=== PATIENT | male | born 1990 | race Caucasian/White ===

== ENCOUNTER 2016-07-30 09:57 | Emergency (ER) | payer MEDICAID ==
[2016-07-30 10:15] VITALS: O2SAT 96
[2016-07-30] MEDS ORDERED: OXYCODONE/APAP 5/325 TAB PO ONE (10:51)
[2016-07-30] MEDS ORDERED: diphenhydrAMINE 25 MG CAP PO ONE (10:51)
[2016-07-30] MEDS ORDERED: AZITHROMYCIN 250 MG TAB PO ONE (10:51)
[2016-07-30] MEDS ORDERED: METOCLOPRAMIDE 10 MG TAB PO ONE (10:51)
--- NOTE | 2016-07-30 11:30 | EDPHY ---
General Narrative: CHIEF COMPLAINT: Sore throat, headache, fever HISTORY OF PRESENT ILLNESS: patient complains of 2 days of sore throat, headache, fever, cough. Symptoms started soon after children and this helps with diagnosed with strep pharyngitis. Headache is consistent with previous migraines. No neck pain or stiffness. No chest pain. Mild, nonproductive cough. No abdominal or urinary complaints. Moderate to severe complaints that are no better with [id number] medications. No particular modifying factors otherwise. No other associated complaints or modifying factors. REVIEW OF SYSTEMS: Ten systems reviewed and are negative unless otherwise noted in the HPI PERTINENT MEDICAL HISTORY: EXAMINATION General Appearance: Alert, no distress Head: normocephalic, atraumatic Eyes: Pupils equal and round, no conjunctival pallor or injection ENT, Mouth: Mucous membranes moist . Uvula midline. There is posterior erythema but no edema. No abscess. Airway widely patent. Neck: Normal inspection, supple, non-tender . No nuchal rigidity or meningismus. Respiratory: Lungs are clear to auscultation . No wheezing, rhonchi or crackles Cardiovascular: Regular rate and rhythm. No murmur. Gastrointestinal: Abdomen is soft and nontender.No CVA tenderness. Neurological: A&O, nonfocal, normal gait Skin: Warm and dry, no rash Extremities: Nontender, no pedal edema Psychiatric: Mood and affect normal DIFFERENTIAL DIAGNOSES: Including but not limited to Viral illness, strep pharyngitis, acute pharyngitis, migraine headache, influenza MDM: 11:20 a.m. sore throat, fever, body aches, chills, headache. No neck pain or stiffness. He does have some cough. His examination is consistent with more viral illness , but does confirm strep pharyngitis in the home. I will treat him presumptively for strep pharyngitis and for his headache. Follow up with primary care physician. Return to ER precautions discussed. Discharged home stable condition SUPERVISION: This patient was independently evaluated without direct examination by the attending physician. Case was discussed with attending physician. - History Smoking Status: Current some day smoker - Objective Vital Signs: Initial Vital Signs Temperature (C) 100.8 F 07/30/16 10:13 Heart Rate 81 07/30/16 10:13 Respiratory Rate 17 07/30/16 10:13 O2 Sat (%) 96 07/30/16 10:13 O2 Delivery Mode Room Air Allergies/Adverse Reactions: Penicillins Allergy (Verified 07/30/16 10:13) Home Medications: Medication Instructions Recorded Azithromycin [Zithromax] 250 mg PO DAILY #4 tab 07/30/16 Codeine/Butalbit/Acetamin/Caff 1 each PO Q6 PRN #12 capsule 07/30/16 [Fioricet-Cod 47-03-450-40 Cap] Ondansetron Odt [Zofran Odt 4 mg 4 mg PO Q6 PRN #12 tab 07/30/16 (*)] Laboratory Results: 07/30/16 07/30/16 07/30/16 Unknown 10:50 10:50 Influenza Typ A,B (DFA) NEGATIVE FOR FLU (NEGATIVE) Group A Strep Screen NEGATIVE (NEGATIVE) Group A Strep DNA Pending Medications Given: Discontinued Medications Azithromycin (Zithromax) 500 mg PO EDNOW ONE PRN Reason: Protocol Stop: 07/30/16 10:52 Last Admin: 07/30/16 11:00 Dose: 500 mg Diphenhydramine HCl (Benadryl) 25 mg PO EDNOW ONE Stop: 07/30/16 10:52 Last Admin: 07/30/16 11:49 Dose: Not Given Metoclopramide HCl (Reglan) 10 mg PO EDNOW ONE Stop: 07/30/16 10:52 Last Admin: 07/30/16 11:49 Dose: Not Given Oxycodone/Acetaminophen (Percocet 5/325) 1 tab PO EDNOW ONE Stop: 07/30/16 10:52 Last Admin: 07/30/16 11:01 Dose: 1 tab Departure - Departure Disposition: Home, Routine, Self-Care Clinical Impression: Myalgia Acute pharyngitis Qualifiers: Pharyngitis/tonsillitis etiology: unspecified etiology Qualified Code(s): J02.9 - Acute pharyngitis, unspecified Cephalgia Qualifiers: Headache type: unspecified Headache chronicity pattern: acute headache Intractability: not intractable Qualified Code(s): R51 - Headache Condition: Good Instructions: Pharyngitis (ED), Migraine Headache (ED), Influenza (ED) Additional Instructions: medications as discussed. Return to the ER for worsening pain, any neck pain or stiffness, persistent fever vomiting Referrals: NONE *PRIMARY CARE P,. [Primary Care Provider] - As per Instructions [facility]Clinic[facility] - As per Instructions Nadia Rivera MD [Medical Doctor] - As per Instructions Stand Alone Forms: Work Excuse Prescriptions: Azithromycin [Zithromax] 250 mg PO DAILY #4 tab Codeine/Butalbit/Acetamin/Caff [Fioricet-Cod 87-71-739-40 Cap] 1 each PO Q6 PRN #12 capsule PRN Reason: Headache Ondansetron Odt [Zofran Odt 4 mg (*)] 4 mg PO Q6 PRN #12 tab PRN Reason: Nausea/Vomiting, Use 1st
[2016-07-30 12:03] VITALS: BP 109/76; PULSE 94; RESP 16; TEMP 98.4
== END 2016-07-30 12:03 | disposition home or self-care (01) ==
DX: J02.9 Acute pharyngitis, unspecified (principal); R51 Headache; M79.1 Myalgia; F17.200 Nicotine dependence, unspecified, uncomplicated

== ENCOUNTER 2016-09-02 07:06 | Emergency (ER) | payer MEDICAID ==
[2016-09-02] MEDS ORDERED: ONDANSETRON 4 MG/2 ML VIAL IVP ONE (07:13)
[2016-09-02] MEDS ORDERED: NS 1,000 ML IV ONE ×2 (07:13→08:12)
[2016-09-02] MEDS ORDERED: KETOROLAC 30 MG/1 ML SDV IVP ONE (07:44)
--- NOTE | 2016-09-02 07:47 | EDPHY ---
H & P Time Seen by Provider: 09/02/16 07:37 HPI/ROS: CHIEF COMPLAINT: Vomiting and diarrhea HISTORY OF PRESENT ILLNESS: 25-year-old male presents with vomiting and diarrhea. Onset of nausea and vomiting yesterday morning. Multiple episodes of vomiting, followed by multiple episodes of watery diarrhea. He now has a moderate headache. He also developed a rash 2 days ago on his scalp and extremities. The rash is resolving. No fever or chills. No known ill contacts. REVIEW OF SYSTEMS: Constitutional: No fever, no chills Eyes: No visual changes ENT: No sore throat Respiratory: No cough, no shortness of breath Cardiac: No chest pain Genitourinary: No hematuria, no dysuria Musculoskeletal: No leg pain or swelling Skin: No rash Neurological: no numbness, no weakness] Psychiatric: No depression Past Medical/Surgical History: Denies Social History: Occasional alcohol use Smoking Status: Never smoked Physical Exam: General Appearance: Alert, pleasant Eyes: Pupils equal and round, no conjunctival pallor or injection ENT, Mouth: Mucous membranes moist Neck: Normal inspection Respiratory: Lungs are clear to auscultation Cardiovascular: Regular rate and rhythm Gastrointestinal: Abdomen is soft, mild epigastric tenderness Neurological: A&O, nonfocal, normal gait Skin: Warm and dry, scattered papular rash on extremities and scalp Extremities: Nontender, no pedal edema Psychiatric: Mood and affect normal Constitutional: Initial Vital Signs Temperature (C) 36.5 C 09/02/16 07:09 Heart Rate 82 09/02/16 07:09 Respiratory Rate 20 09/02/16 07:09 Blood Pressure 126/73 H 09/02/16 07:09 O2 Sat (%) 94 09/02/16 07:09 O2 Delivery Mode Room Air Allergies/Adverse Reactions: Penicillins Allergy (Verified 09/02/16 07:09) Home Medications: Medication Instructions Recorded Ondansetron Odt [Zofran Odt 4 mg 4 mg PO Q6 PRN #12 tab 07/30/16 (*)] Ondansetron Odt [Zofran Odt 4 mg 4 mg PO Q4 PRN #6 tab 09/02/16 (*)] Medical Decision Making ED Course/Re-evaluation: This patient presents with vomiting, diarrhea, headache and rash, consistent with viral syndrome. I do not suspect meningitis or other serious etiology for his symptoms. IV normal saline 1L, Toradol and Zofran IV given. 0815-Continues to feel nauseated. Reglan 10 mg IV and Benadryl 25 mg IV given. 9:30 a.m.-feels better and wants to go home. Abdominal exam is benign. Differential Diagnosis: Differential diagnosis includes though not limited to severe dehydration, appendicitis, DKA, meningitis, sinusitis, pneumonia. - Data Points Laboratory Results: Laboratory Results 09/02/16 07:21 09/02/16 07:21 09/02/16 09/02/16 07:21 07:21 WBC 12.51 10^3/uL H 10^3/uL (3.80-9.50) RBC 5.21 10^6/uL 10^6/uL (4.40-6.38) Hgb 15.9 g/dL g/dL (13.7-17.5) Hct 46.7 % % (40.0-51.0) MCV 89.6 fL fL (81.5-99.8) MCH 30.5 pg pg (27.9-34.1) MCHC 34.0 g/dL g/dL (32.4-36.7) RDW 12.7 % % (11.5-15.2) Plt Count 206 10^3/uL 10^3/uL (150-400) MPV 10.6 fL fL (8.7-11.7) Neut % (Auto) 71.6 % % (39.3-74.2) Lymph % (Auto) 16.1 % % (15.0-45.0) Grundy % (Auto) 8.3 % % (4.5-13.0) Eos % (Auto) 3.1 % % (0.6-7.6) Baso % (Auto) 0.4 % % (0.3-1.7) Nucleat RBC Rel Count 0.0 % % (0.0-0.2) Absolute Neuts (auto) 8.95 10^3/uL H 10^3/uL (1.70-6.50) Absolute Lymphs (auto) 2.02 10^3/uL 10^3/uL (1.00-3.00) Absolute Monos (auto) 1.04 10^3/uL H 10^3/uL (0.30-0.80) Absolute Eos (auto) 0.39 10^3/uL 10^3/uL (0.03-0.40) Absolute Basos (auto) 0.05 10^3/uL 10^3/uL (0.02-0.10) Absolute Nucleated RBC 0.00 10^3/uL 10^3/uL (0-0.01) Immature Gran % 0.5 % % (0.0-1.1) Immature Gran # 0.06 10^3/uL 10^3/uL (0.00-0.10) Sodium 142 mEq/L mEq/L (134-144) Potassium 4.5 mEq/L mEq/L (3.5-5.2) Chloride 104 mEq/L mEq/L (97-110) Carbon Dioxide 25 mEq/l mEq/l (22-31) Anion Gap 13 mEq/L mEq/L (8-16) BUN 22 mg/dL mg/dL (7-23) Creatinine 0.9 mg/dL mg/dL (0.7-1.3) Estimated GFR > 60 Glucose 93 mg/dL mg/dL (70-100) Calcium 9.9 mg/dL mg/dL (8.5-10.4) Medications Given: Discontinued Medications Diphenhydramine HCl (Benadryl Injection) 25 mg IVP EDNOW ONE Stop: 09/02/16 08:13 Last Admin: 09/02/16 08:22 Dose: 25 mg Sodium Chloride (Ns) 1,000 mls @ 0 mls/hr IV ONCE ONE PRN Reason: Wide Open Stop: 09/02/16 07:14 Last Admin: 09/02/16 07:32 Dose: 1,000 mls Sodium Chloride (Ns) 1,000 mls @ 0 mls/hr IV ONCE ONE PRN Reason: Wide Open Stop: 09/02/16 08:13 Last Admin: 09/02/16 08:23 Dose: 1,000 mls Ketorolac Tromethamine (Toradol) 30 mg IVP EDNOW ONE Stop: 09/02/16 07:45 Last Admin: 09/02/16 07:51 Dose: 30 mg Metoclopramide HCl (Reglan Injection) 10 mg IVP EDNOW ONE Stop: 09/02/16 08:13 Last Admin: 09/02/16 08:22 Dose: 10 mg Ondansetron HCl (Zofran) 4 mg IVP EDNOW ONE Stop: 09/02/16 07:14 Last Admin: 09/02/16 07:33 Dose: 4 mg Departure - Departure Disposition: Home, Routine, Self-Care Clinical Impression: Acute gastroenteritis Condition: Good Instructions: Gastroenteritis (ED) Additional Instructions: Clear liquids today. Advanced diet as tolerated. Return for worsening symptoms or any concerns. Referrals: DAI TUCKER [Medical Doctor] - 2-3 days, if not improved Prescriptions: Ondansetron Odt [Zofran Odt 4 mg (*)] 4 mg PO Q4 PRN #6 tab PRN Reason: Nausea
[2016-09-02 07:53] LABS: % IMMATURE GRANULYOCYTES 0.5 % (0.0-1.1); ABSOLUTE IMMATURE GRANULOCYTES 0.06 10^3/uL (0.00-0.10); ADD DIFF? NO; ADD MORPH? NO; ADD SCAN? NO; ATYPICAL LYMPHOCYTE FLAG 0 (0-99); FRAGMENT RBC FLAG 0 (0-99); HEMATOCRIT 46.7 % (40.0-51.0); HEMOGLOBIN 15.9 g/dL (13.7-17.5); LEFT SHIFT FLG 0 (0-99); LIPEMIA HEMOLYSIS FLAG 90 (0-99); MEAN CELL HEMOGLOBIN 30.5 pg (27.9-34.1); MEAN CELL VOLUME 89.6 fL (81.5-99.8); MEAN PLATELET VOLUME 10.6 fL (8.7-11.7); PLATELET CLUMPS FLAG 0 (0-99); PLATELET COUNT 206 10^3/uL (150-400); RED BLOOD CELL COUNT 5.21 10^6/uL (4.40-6.38); RED CELL DISTRIBUTION WIDTH 12.7 % (11.5-15.2)
[2016-09-02 08:00] LABS: ANION GAP 13 mEq/L (8-16); CALCIUM 9.9 mg/dL (8.5-10.4); CARBON DIOXIDE 25 mEq/l (22-31); CHLORIDE 104 mEq/L (97-110); CREATININE 0.9 mg/dL (0.7-1.3); GLOMERULAR FILTRATION RATE > 60; GLUCOSE 93 mg/dL (70-100); POTASSIUM 4.5 mEq/L (3.5-5.2); SODIUM 142 mEq/L (134-144)
[2016-09-02] MEDS ORDERED: METOCLOPRAMIDE 10 MG/2 ML VIAL IVP ONE (08:12)
[2016-09-02] MEDS ORDERED: METOCLOPRAMIDE 10 MG/2 ML VIAL ONE (08:12)
[2016-09-02 09:39] VITALS: BP 128/77; PULSE 70; RESP 14; TEMP 98.4; O2SAT 96
== END 2016-09-02 09:38 | disposition home or self-care (01) ==
DX: K52.9 Noninfective gastroenteritis and colitis, unspecified (principal)
CPT/HCPCS: 96374; J1200; J1885; J2405; J2765

== ENCOUNTER 2016-09-16 12:12 | Emergency (ER) | payer MEDICAID ==
--- NOTE | 2016-09-16 13:06 | EDPHY ---
H & P Time Seen by Provider: 09/16/16 12:57 HPI/ROS: CHIEF COMPLAINT: Skin rash for 1 week HISTORY OF PRESENT ILLNESS: Patient presents with a rash for 1 week which is mildly itchy. It is not responsive to old male bath or Benadryl or using topical [id number] creams. 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 It is located on his trunk and on both upper and lower extremities and his scalp. REVIEW OF SYSTEMS: No trouble breathing or tongue or lip swelling. PAST MEDICAL HISTORY: Hernia surgery Social history: Works in [email or web address] General Appearance: Alert and conversant, cooperative. Patient is alert and no respiratory distress. Scattered papules with a little bit of scaling on both torso and upper and lower extremities and his scalp. It is more confluent on his scalp but on extremities has no lesions greater than 5 mm in diameter. No lymphangitis and no warmth or tenderness. No oral lesions. Emergency Department course/MDM: Appearance most like contact dermatitis from unknown source. He does not appear to have systemic anaphylaxis or other symptoms of systemic illness. Trial of oral prednisone and primary care or dermatology follow-up referral. Smoking Status: Never smoked Constitutional: Initial Vital Signs Temperature (C) 36.8 C 09/16/16 12:13 Heart Rate 66 09/16/16 12:13 Respiratory Rate 16 09/16/16 12:13 Blood Pressure 122/70 H 09/16/16 12:13 O2 Sat (%) 93 09/16/16 12:13 O2 Delivery Mode Room Air Allergies/Adverse Reactions: Penicillins Allergy (Verified 09/02/16 07:09) Home Medications: Medication Instructions Recorded Ondansetron Odt [Zofran Odt 4 mg 4 mg PO Q6 PRN #12 tab 07/30/16 (*)] Ondansetron Odt [Zofran Odt 4 mg 4 mg PO Q4 PRN #6 tab 09/02/16 (*)] predniSONE [prednisone 20mg (RX)] 40 mg PO DAILY 7 Days 09/16/16 MDM/Departure - Depart Disposition: Home, Routine, Self-Care Clinical Impression: Contact dermatitis Qualifiers: Contact dermatitis type: unspecified Contact dermatitis trigger: unspecified trigger Qualified Code(s): L25.9 - Unspecified contact dermatitis, unspecified cause Condition: Good Instructions: Contact Dermatitis (ED) Prescriptions: predniSONE [prednisone 20mg (RX)] 40 mg PO DAILY 7 Days Referrals: Ronald Molina MD [Medical Doctor] - As per Instructions Clinton Dominique MD [Medical Doctor] - As per Instructions
[2016-09-16 13:23] VITALS: BP 122/79; PULSE 70; RESP 14; TEMP 98.4; O2SAT 94
== END 2016-09-16 13:22 | disposition home or self-care (01) ==
DX: L25.9 Unspecified contact dermatitis, unspecified cause (principal)

== ENCOUNTER 2016-11-05 17:03 | Emergency (ER) | payer MEDICAID ==
[2016-11-05 17:11] VITALS: TEMP 98.4
--- NOTE | 2016-11-05 17:48 | EDPHY ---
H & P Stated Complaint: fishing today/noted hands turning blue/also continued prob with rash to bod Time Seen by Provider: 11/05/16 17:40 - Personal History Current Tetanus/Diphtheria Vaccine: No - Medical/Surgical History Hx Asthma: No Hx Chronic Respiratory Disease: No Hx Diabetes: No Hx Cardiac Disease: No Hx Renal Disease: No Hx Cirrhosis: No Hx Alcoholism: No Hx HIV/AIDS: No Hx Splenectomy or Spleen Trauma: No Other PMH: hernia sx - Social History Smoking Status: Never smoked Constitutional: Initial Vital Signs Temperature (C) 36.9 C 11/05/16 17:09 Heart Rate 71 11/05/16 17:09 Respiratory Rate 20 11/05/16 17:09 Blood Pressure 125/84 H 11/05/16 17:09 O2 Sat (%) 97 11/05/16 17:09 O2 Delivery Mode Room Air Allergies/Adverse Reactions: Penicillins Allergy (Verified 11/05/16 17:08) Home Medications: Medication Instructions Recorded methylPREDNISolone [Medrol Dose 1 each PO AD #1 ea 11/05/16 Maulik] Medical Decision Making ED Course/Re-evaluation: CHIEF COMPLAINT: Blue hands HISTORY OF PRESENT ILLNESS: The patient is a 26 y/o male complaining of sudden onset blue hands while fishing this afternoon. He states the discoloration slowly improved over the next 40 minutes. He had some mild associated tingling in his fingers, but denies pain, coldness, dyspnea, or other associated symptoms. No preceding trauma or illness. His discoloration has resolved by time of assessment. He has never had this discoloration before. He was not wearing new blue jeans, though notes he did take some type of Spanish medicinal powder this morning. He also notes a rash on his torso and legs for the last two months. He has not followed up with a junior php developer yet. He has been prescribed steroids and Benadryl to treat this without improvement. No one else in his household has similar symptoms. REVIEW OF SYSTEMS: A 10 point review of systems was performed and is negative with the exception of the elements mentioned in the history of present illness. PHYSICAL EXAM: HR, BP, O2 Sat, RR. Temp noted General Appearance: Alert, well hydrated, appropriate, and non-toxic appearing. Head: Atraumatic without scalp tenderness or obvious injury Eyes: Pupils equal, round, reactive to light and accommodation, EOMI, no trauma , no injection. Nose: Atraumatic, no rhinorrhea, clear. Throat: Mucus membranes moist. Neck: Supple, nontender, no lymphadenopathy. Respiratory: No retractions, no distress, no wheezes, and no accessory muscle use. Lungs are clear to auscultation bilaterally. Cardiovascular: Regular rate and rhythm, no murmurs, rubs, or gallops. Bilateral carotid, radial, dorsalis pedis, and posterior tibial pulses intact. Good capillary refill all extremities. Gastrointestinal: Abdomen is soft, nontender, non-distended, no masses, no rebound, no guarding, no peritoneal signs. Musculoskeletal: Normal active ROM of all extremities, atraumatic. Neurological: Alert, appropriate, and interactive. Nonfocal neuro exam. Skin: Good turgor, no nodules on palpation. Maculopapular erythematous pustules on torso and legs. 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 MEDICAL DECISION MAKING: This is a 26 y/o male presenting with a 2-month history of maculopapular pustules on his trunk and legs that have not improved with steroids or Benadryl. He has not yet followed up with dermatology. He is otherwise well- appearing without any signs of cyanosis. Plan for steroid treatment and dermatology follow up. He will also try changing detergents to see if his rash improves. Return precautions given. Departure - Departure Disposition: Home, Routine, Self-Care Clinical Impression: Rash Condition: Good Instructions: Acute Rash (ED) Additional Instructions: 1. Take Medrol as prescribed. 2. Try switching to hypoallergenic laundry detergent without fragrances or dyes. 3. Follow up with a junior php developer and oracle etl developer in the next week. 4. Return to the ED if your skin turns blue again. 5. You've been referred to Dr. Hurtado, hand specialist, if needed. Referrals: NONE *PRIMARY CARE P,. [Primary Care Provider] - As per Instructions Channing Hurtado MD [Medical Doctor] - As per Instructions Clinton Dominique MD [Medical Doctor] - As per Instructions Tanvi Mcgowan MD [[facility] – [place] Primary Care Provider] - As per Instructions Prescriptions: methylPREDNISolone [Medrol Dose Maulik] 1 each PO AD #1 ea Report Scribed for: Ron Leon Report Scribed by: Shanna Mai Date of Report: 11/05/16 Time of Report: 18:41
[2016-11-05 19:07] VITALS: BP 111/89; PULSE 73; RESP 16; O2SAT 95
== END 2016-11-05 19:06 | disposition home or self-care (01) ==
DX: R21 Rash and other nonspecific skin eruption (principal)

== ENCOUNTER 2017-05-22 17:41 | Emergency (ER) | payer MEDICAID ==
[2017-05-22 17:57] VITALS: O2SAT 98
[2017-05-22] MEDS ORDERED: ONDANSETRON 4 MG/2 ML VIAL ONE (18:22)
--- NOTE | 2017-05-22 18:22 | EDPHY ---
HPI/HX/ROS/PE/MDM Narrative: CHIEF COMPLAINT: Nausea, vomiting, diarrhea HISTORY OF PRESENT ILLNESS: The patient is a 26 y/o male complaining of nausea, vomiting, diarrhea, onset this morning. He has had 9 or 10 episodes of both vomiting and diarrhea. He has associated abdominal pain. He denies fever, hematemesis, hematuria, bloody stool , or any other associated symptoms. Yesterday he drank 3 redbull energy drinks, which he has done before. He denies any recent international travel. He occasionally uses marijuana. He denies illicit drug use. No fever, chills, chest pain, shortness of breath, palpitations, urinary complaints, headache, lightheadedness. REVIEW OF SYSTEMS: Aside from elements discussed in the HPI, a comprehensive 10-point review of systems was reviewed and is negative. 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 HEENT: Atraumatic. Eyes: No icterus, no injection. Mouth: moist mucous membranes. No erythema or lesions. Neck: supple with no adenopathy. LUNGS: Clear to auscultation bilaterally, no wheezes, rhonchi or rales. CARDIAC: Regular rate and rhythm, no rubs, murmurs or gallops. ABDOMEN: Epigastric and suprapubic tenderness, no guarding or rebound. Soft, nondistended, bowel sounds normal. BACK: No CVA tenderness. EXTREMITIES: No trauma. No edema. Range of motion is normal throughout. NEURO: Alert and oriented, grossly nonfocal. SKIN: Warm and dry, no rash. PSYCHIATRIC: Normal mentation, no agitation. ED Course: The patient presents with nausea, vomiting, diarrhea, and abdominal pain onset today. Plan for labs, Zofran, and 1L fluids. Re-examined at 7:00 p.m.: Patient is feeling better. He has had no further vomiting or diarrhea. Still has some epigastric discomfort. Patient was offered a GI cocktail but feels that he would vomited. 2nd L of saline was hung as well as a 2nd round of Zofran. Improved post these measures. Home with zofran and precautions. MDM: Differential diagnosis of the patient's nausea and vomiting was considered including but not limited to gastroenteritis, gastritis, alcohol intoxication, withdrawal symptoms, intraabdominal processes including appendicitis, pancreatitis, bowel obstruction and medication side effect. - Data Points Laboratory Results: Laboratory Results 05/22/17 18:30 05/22/17 18:30 Medications Given: Discontinued Medications Al Hydroxide/Mg Hydroxide (Maalox Susp) 30 ml PO ONCE ONE Stop: 05/22/17 18:27 Last Admin: 05/22/17 19:25 Dose: 30 ml Fentanyl (Sublimaze) 75 mcg IVP EDNOW ONE Stop: 05/22/17 18:25 Last Admin: 05/22/17 18:36 Dose: 75 mcg Hyoscyamine Sulfate (Levsin, Hyomax-Sl) 0.25 mg PO ONCE ONE Stop: 05/22/17 18:27 Last Admin: 05/22/17 19:25 Dose: 0.25 mg Sodium Chloride (Ns) 1,000 mls @ 0 mls/hr IV EDNOW ONE; Wide Open PRN Reason: Protocol Stop: 05/22/17 18:25 Last Admin: 05/22/17 18:30 Dose: 1,000 mls Sodium Chloride (Ns) 500 mls @ 1,000 mls/hr IV EDNOW ONE PRN Reason: Protocol Stop: 05/22/17 19:37 Last Admin: 05/22/17 19:19 Dose: 500 mls Lidocaine (Lidocaine 2% Viscous) 15 ml PO ONCE ONE Stop: 05/22/17 18:27 Last Admin: 05/22/17 19:25 Dose: 15 ml Ondansetron HCl (Zofran) 4 mg IVP EDNOW ONE Stop: 05/22/17 18:25 Last Admin: 05/22/17 18:30 Dose: 4 mg Ondansetron HCl (Zofran) 4 mg IVP EDNOW ONE Stop: 05/22/17 19:08 Last Admin: 05/22/17 19:20 Dose: 4 mg Ondansetron HCl (Zofran Odt 4 Mg Prepack#2) 1 btl TAKEHOME EDNOW ONE Stop: 05/22/17 20:52 Last Admin: 05/22/17 20:51 Dose: 1 btl General Time Seen by Provider: 05/22/17 18:04 Initial Vital Signs: Initial Vital Signs Temperature (C) 36.4 C 05/22/17 17:53 Heart Rate 106 H 05/22/17 17:53 Respiratory Rate 18 05/22/17 17:53 Blood Pressure 113/85 H 05/22/17 17:53 O2 Sat (%) 98 05/22/17 17:53 O2 Delivery Mode Room Air Allergies/Adverse Reactions: Penicillins Allergy (Verified 11/05/16 17:08) Home Medications: Medication Instructions Recorded methylPREDNISolone [Medrol Dose 1 each PO AD #1 ea 11/05/16 Maulik] Ondansetron Odt [Zofran Odt 4 mg 4 mg PO Q6 PRN #8 tab 05/22/17 (RX)] Ondansetron Odt [Zofran Odt 4 mg 4 mg PO Q6 PRN #8 tab 05/22/17 (RX)] Departure - Departure Disposition: Home, Routine, Self-Care Clinical Impression: Gastroenteritis, Dehydration Condition: Good Instructions: Ondansetron (By mouth), Gastroenteritis (ED), Acute Nausea and Vomiting (ED) Additional Instructions: For your vomiting and diarrhea, I suggested you start with a bland diet and advance as tolerated. This means start with clear liquids such as water, Gatorade, juice, flat non- caffeinated soda. If you tolerate clear liquids, then you may add bland foods such as bananas, rice, or toast. If you do not have any worsening of your symptoms, you may begin to resume a regular diet. Okay to take Zofran if needed for ongoing nausea vomiting. Drink clear fluids in small frequent sips. Return to the emergency department or seek care urgently if your nausea/ vomiting is not controlled with the above measures, if you develop fevers, other concerns. Referrals: NONE *PRIMARY CARE P,. [Primary Care Provider] - As per Instructions Prescriptions: Ondansetron Odt [Zofran Odt 4 mg (RX)] 4 mg PO Q6 PRN #8 tab PRN Reason: Nausea Ondansetron Odt [Zofran Odt 4 mg (RX)] 4 mg PO Q6 PRN #8 tab PRN Reason: Nausea Report Scribed for: Meena Couch Report Scribed by: Fatimah Dye Date of Report: 05/22/17 Time of Report: 18:24 Physician Review and Approval Statement: Portions of this note were transcribed by a medical technologist generalist. I personally performed a history, physical exam, medical decision making, and confirmed accuracy of information the transcribed note.
[2017-05-22] MEDS ORDERED: fentaNYL 100 MCG/2 ML INJ IVP ONE (18:24)
[2017-05-22] MEDS ORDERED: ONDANSETRON 4 MG/2 ML VIAL IVP ONE ×2 (18:24→19:07)
[2017-05-22] MEDS ORDERED: NS 1,000 ML IV ONE (18:24)
[2017-05-22] MEDS ORDERED: MAG HYDROX/AL HYDROX/SIMETH 30 ML UDCUP PO ONE (18:26)
[2017-05-22] MEDS ORDERED: HYOSCYAMINE SULFATE 0.125 MG TAB PO ONE (18:26)
[2017-05-22] MEDS ORDERED: LIDOCAINE 2% VISCOUS 15 ML UDCUP PO ONE (18:26)
[2017-05-22 18:34] LABS: PLATELET COUNT 240 10^3/uL (150-400)
[2017-05-22] MEDS ORDERED: NS 500 ML IV ONE (19:08)
[2017-05-22] MEDS ORDERED: ONDANSETRON 4MG PREPACK#2 BTL TAKEHOME ONE ×2 (20:44→20:51)
[2017-05-22 20:53] VITALS: BP 121/73; PULSE 84; RESP 16; TEMP 98.4
== END 2017-05-22 20:56 | disposition home or self-care (01) ==
DX: K52.9 Noninfective gastroenteritis and colitis, unspecified (principal); E86.9 Volume depletion, unspecified
CPT/HCPCS: 96374; J2405; J3010

== ENCOUNTER 2017-07-06 13:31 | Emergency (ER) | payer MEDICAID ==
[2017-07-06 13:37] VITALS: RESP 18
[2017-07-06] MEDS ORDERED: IBUPROFEN 800 MG TAB PO ONE (13:48)
[2017-07-06] MEDS ORDERED: ACETAMINOPHEN 500 MG TAB PO ONE (13:48)
--- NOTE | 2017-07-06 13:48 | EDPHY ---
H & P Stated Complaint: body aches, chills, "I think i have the flu" Time Seen by Provider: 07/06/17 13:41 HPI/ROS: CHIEF COMPLAINT: Have the flu HISTORY OF PRESENT ILLNESS: Patient is a 26-year-old man who comes to the emergency department complaining of fevers, body aches, nausea but no vomiting. No diarrhea. No chest pain or shortness of breath. No cough. He has had the symptoms for 2 days. He has been taking [place] tea with some improvement. REVIEW OF SYSTEMS: Constitutional: See HPI EENTM: denies: blurred vision, double vision, nose congestion Respiratory: denies: cough, shortness of breath Cardiac: denies: chest pain, irregular heart rate, lightheadedness, palpitations Gastrointestinal/Abdominal: denies: abdominal pain, diarrhea, nausea, vomiting, blood streaked stools Genitourinary: denies: dysuria, frequency, hematuria, pain Musculoskeletal: denies: joint pain, muscle pain Skin: denies: lesions, rash, jaundice, bruising Neurological: denies: headache, numbness, paresthesia, tingling, dizziness, weakness Hematologic/Lymphatic: denies: blood clots, easy bleeding, easy bruising Immunologic/allergic: denies: HIV/AIDS, transplant EXAM: GENERAL: Moderate distress HEAD: Atraumatic, normocephalic. EYES: Pupils equal round and reactive to light, extraocular movements intact, sclera anicteric, conjunctiva are normal. ENT: TMs normal, nares patent, oropharynx clear without exudates. Moist mucous membranes. NECK: Normal range of motion, supple without lymphadenopathy or JVD. LUNGS: Breath sounds clear to auscultation bilaterally and equal. No wheezes rales or rhonchi. HEART: Regular rate and rhythm without murmurs, rubs or gallops. ABDOMEN: Soft, nontender, normoactive bowel sounds. No guarding, no rebound. No masses appreciated. BACK: No CVA tenderness, no spinal tenderness, step-offs or deformities EXTREMITIES: Normal range of motion, no pitting or edema. No clubbing or cyanosis. NEUROLOGICAL: Cranial nerves II through XII grossly intact. Normal speech, normal gait. 5/5 strength, normal movement in all extremities, normal sensation PSYCH: Normal mood, normal affect. SKIN: Warm, dry, normal turgor, no visible rashes or lesions. Source: Patient Exam Limitations: No limitations - Personal History Current Tetanus Diphtheria and Acellular Pertussis (TDAP): Yes - Medical/Surgical History Hx Asthma: No Hx Chronic Respiratory Disease: No Hx Diabetes: No Hx Cardiac Disease: No Hx Renal Disease: No Hx Cirrhosis: No Hx Alcoholism: No Hx HIV/AIDS: No Hx Splenectomy or Spleen Trauma: No Other PMH: hernia sx - Family History Significant Family History: No pertinent family hx - Social History Smoking Status: Current every day smoker Alcohol Use: Sober Drug Use: None Constitutional: Initial Vital Signs Temperature (C) 38.5 C H 07/06/17 13:35 Heart Rate 116 H 07/06/17 13:35 Respiratory Rate 18 07/06/17 13:35 Blood Pressure 120/82 H 07/06/17 13:35 O2 Sat (%) 95 07/06/17 13:35 O2 Delivery Mode Room Air Allergies/Adverse Reactions: Penicillins Allergy (Verified 07/06/17 13:35) Home Medications: Medication Instructions Recorded NK [No Known Home Meds] 07/06/17 Medical Decision Making ED Course/Re-evaluation: 3:40 p.m. the patient's flu test is negative. His fever has resolved and his vital signs have normalized. He states that he feels much better but still has a mild headache. He does not have meningismus. I did offer lumbar puncture but he declines. He is not toxic-appearing. He likely has a viral infection. His initial symptoms were runny nose, congestion and chills. We discussed indications for returning. Differential Diagnosis: Partial list of the Differential diagnosis considered include but were not limited to; influenza, viral syndrome, upper respiratory tract infection and although unlikely based on the history and physical exam, I also considered is, sepsis. I discussed these differential diagnoses and the plan with the patient as well as the usual and expected course. The patient understands that the diagnosis is provisional and that in medicine we are not always correct and that further workup is often warranted. Usual and customary warnings were given. All of the patient's questions were answered. The patient was instructed to return to the emergency department should the symptoms at all worsen or return, otherwise to followup with the physician as we discussed. - Data Points Medications Given: Discontinued Medications Acetaminophen (Tylenol) 1,000 mg PO EDNOW ONE Stop: 07/06/17 13:49 Last Admin: 07/06/17 13:57 Dose: 1,000 mg Ibuprofen (Motrin) 800 mg PO EDNOW ONE Stop: 07/06/17 13:49 Last Admin: 07/06/17 13:57 Dose: 800 mg Ondansetron HCl (Zofran Odt) 4 mg PO EDNOW ONE Stop: 07/06/17 13:50 Last Admin: 07/06/17 13:57 Dose: 4 mg Departure - Departure Disposition: Home, Routine, Self-Care Clinical Impression: Viral syndrome Condition: Fair Instructions: Viral Syndrome (ED) Referrals: NONE *PRIMARY CARE P,. [Primary Care Provider] - As per Instructions ED,PHYSICIAN ONDUTY [Medical Doctor] - 1 day, if not improved
[2017-07-06] MEDS ORDERED: ONDANSETRON DISINTEGRATING 4 MG TAB PO ONE (13:49)
[2017-07-06 16:09] VITALS: BP 108/63; PULSE 92; TEMP 98.4; O2SAT 94
== END 2017-07-06 16:10 | disposition home or self-care (01) ==
DX: B34.9 Viral infection, unspecified (principal); F17.200 Nicotine dependence, unspecified, uncomplicated

== ENCOUNTER 2017-07-08 10:33 | Emergency (ER) | payer MEDICAID ==
[2017-07-08] MEDS ORDERED: NS 1,000 ML IV ONE ×2 (11:21→14:48)
[2017-07-08] MEDS ORDERED: ONDANSETRON 4 MG/2 ML VIAL IVP ONE (11:21)
[2017-07-08 11:51] LABS: PLATELET COUNT 223 10^3/uL (150-400)
--- NOTE | 2017-07-08 12:00 | EDPHY ---
H & P Stated Complaint: welch/fever/n/v/d seen 2 days ago flu negative/still feeling sick - Personal History Current Tetanus/Diphtheria Vaccine: Unsure - Medical/Surgical History Hx Asthma: No Hx Chronic Respiratory Disease: No Hx Diabetes: No Hx Cardiac Disease: No Hx Renal Disease: No Hx Cirrhosis: No Hx Alcoholism: No Hx HIV/AIDS: No Hx Splenectomy or Spleen Trauma: No Other PMH: hernia sx - Social History Smoking Status: Current every day smoker Time Seen by Provider: 07/08/17 11:47 HPI/ROS: CHIEF COMPLAINT: Continued flu-like symptoms HISTORY OF PRESENT ILLNESS: 26-year-old immunocompetent male seen emergency department 2 days ago for complaints of flu-like symptoms. He states that he felt better after 1 g of Tylenol. For the past 2 days he has had continued fever, chills, myalgias, nausea, diarrhea, no vomiting. No abdominal pain. No nuchal rigidity. No cough. No international travel. No antibiotic use. Patient negative influenza testing at that time He notes that 2 other family members are now sick with similar symptoms. REVIEW OF SYSTEMS: A ten point review of systems was performed and is negative with the exception of the items mentioned in the HPI PAST MEDICAL & SURGICAL HISTORY: No pertinent medical or surgical history SOCIAL HISTORY: Single PHYSICAL EXAM (Prior to examination, patient consented to physical exam, hands were washed and my usual and customary physical exam procedures followed) 1) GENERAL: Well-developed, well-nourished, alert and oriented. Appears nontoxic. 2) HEAD: Normocephalic, atraumatic 3) HEENT: Pupils equal, round, reactive to light bilaterally. Sclera anicteric. Nasopharynx, oropharynx, clear, no lesions. Dry mucous membrane Ears bilaterally with normal tympanic membranes. 4) NECK: Full range of motion, no meningeal signs. 5) LUNGS: Clear auscultation bilaterally, no wheezes, no rhonchi, no retractions. 6) HEART: Regular rate and rhythm, no murmur, no heave, no gallop. 7) ABDOMEN: No guarding, no rebound, no focal tenderness, negative McBurney's, negative Lombardo's, negative Rovsing's, negative peritoneal sign, I am unable to elicit any abdominal pain on exam 8) MUSCULOSKELETAL: Moving all extremities, no focal areas of tenderness, no obvious trauma. No peripheral edema or discoloration. 9) BACK: No CVA tenderness, no midline vertebral tenderness, no fluctuance, no step-off, no obvious trauma, no visual or palpable abnormality. 10) SKIN: No rash, no petechiae. 11) Psychiatric: Patient is oriented X 3, there is no agitation. DIFFERENTIAL DIAGNOSIS: [ In no particular order including but not limited to meningitis, influenza, viral syndrome (Kushal,D Mariama) Constitutional: Initial Vital Signs Temperature (C) 37.4 C 07/08/17 10:35 Heart Rate 98 07/08/17 10:35 Respiratory Rate 18 07/08/17 10:35 Blood Pressure 111/65 07/08/17 10:35 O2 Sat (%) 93 07/08/17 10:35 O2 Delivery Mode Room Air Allergies/Adverse Reactions: Penicillins Allergy (Verified 07/08/17 10:35) Home Medications: Medication Instructions Recorded Ibuprofen [Motrin (*)] 800 mg PO Q6 #15 tab 07/08/17 Ondansetron Odt [Zofran Odt] 4 mg PO Q4PRN PRN #10 tab 07/08/17 Zofran Odt 07/08/17 Medical Decision Making - Diagnostics Imaging Results: Imaging Impressions Chest X-Ray 07/08/17 12:49 Impression: Clear lungs. No pneumonia or effusion. ED Course/Re-evaluation: 11:59 a.m.: Old medical records reviewed by myself. Will administer IV hydration. 12:50 p.m.: Re-evaluation. He has received 1 L of IV fluid he notes mild improvement in symptoms. I re-evaluated the patient, as lungs remain clear, he has excellent range of motion of his neck, no meningismus. He is complaining of continued headache. I think that meningitis is less than likely. He informs me that he has been experiencing epigastric discomfort and he is mildly tender to palpation midline epigastrium. He notes to me that he has been drinking excessive amounts of Red Bull energy drinks. Discussed possibility of acute gastritis. He has absolutely no lower abdominal pain. I think that acute appendicitis is less than likely in this patient. Doubt acute cholecystitis. Will administer GI cocktail, or chest x-ray and re-evaluated 2:34 p.m.: re-evaluation with serial examinations during his ER stay most recently at this time. At this time he appears comfortable, vital signs are normal, he has been observed tolerating oral intake. States his headache has moderated. I re-examined his abdomen which is soft no guarding no rebound no McBurney's point pain. I think that meningitis is less than likely in this patient at this time. Plan will be discharge, we discussed further supportive therapy. He feels comfortable being discharged. All questions and concerns addressed by myself. Care of patient under supervision of secondary supervising physician Dr Enamorado with whom I discussed case. . (Abilio Fatima) This patient was seen and examined by me. He presents with a several day history of fever, headache, nausea and diarrhea. Physical exam is unremarkable , so likely neurologic exam is normal and the abdomen is soft and nontender. Clinically he does not have meningitis, though I am concerned about meningitis because of the persistence and severity of his headache. After a prolonged discussion with the patient, he refuses lumbar puncture. He is aware that he may have meningitis. I will give him and a L of normal saline. He will alternate Tylenol and ibuprofen around the clock. He will return to the emergency department for worsening symptoms or if he changes his mind about lumbar puncture. (Yaritza Enamorado) - Data Points Laboratory Results: Laboratory Results 07/08/17 11:45 07/08/17 11:45 07/08/17 07/08/17 07/08/17 11:45 11:45 11:45 WBC 17.85 10^3/uL H 10^3/uL (3.80-9.50) RBC 5.10 10^6/uL 10^6/uL (4.40-6.38) Hgb 15.9 g/dL g/dL (13.7-17.5) Hct 45.1 % % (40.0-51.0) MCV 88.4 fL fL (81.5-99.8) MCH 31.2 pg pg (27.9-34.1) MCHC 35.3 g/dL g/dL (32.4-36.7) RDW 12.2 % % (11.5-15.2) Plt Count 223 10^3/uL 10^3/uL (150-400) MPV 10.2 fL fL (8.7-11.7) Neut % (Auto) 71.3 % % (39.3-74.2) Lymph % (Auto) 12.4 % L % (15.0-45.0) [place] % (Auto) 14.7 % H % (4.5-13.0) Eos % (Auto) 0.2 % L % (0.6-7.6) Baso % (Auto) 0.6 % % (0.3-1.7) Nucleat RBC Rel Count 0.0 % % (0.0-0.2) Absolute Neuts (auto) 12.73 10^3/uL H 10^3/uL (1.70-6.50) Absolute Lymphs (auto) 2.21 10^3/uL 10^3/uL (1.00-3.00) Absolute Monos (auto) 2.63 10^3/uL H 10^3/uL (0.30-0.80) Absolute Eos (auto) 0.03 10^3/uL 10^3/uL (0.03-0.40) Absolute Basos (auto) 0.10 10^3/uL 10^3/uL (0.02-0.10) Absolute Nucleated RBC 0.00 10^3/uL 10^3/uL (0-0.01) Immature Gran % 0.8 % % (0.0-1.1) Immature Gran # 0.15 10^3/uL H 10^3/uL (0.00-0.10) Sodium 142 mEq/L mEq/L (135-145) Potassium 3.5 mEq/L mEq/L (3.5-5.2) Chloride 99 mEq/L mEq/L (97-110) Carbon Dioxide 24 mEq/l mEq/l (22-31) Anion Gap 19 mEq/L H mEq/L (8-16) BUN 9 mg/dL mg/dL (7-23) Creatinine 0.9 mg/dL mg/dL (0.7-1.3) Estimated GFR > 60 Glucose 95 mg/dL mg/dL (70-100) Calcium 9.8 mg/dL mg/dL (8.5-10.4) Total Bilirubin 0.6 mg/dL mg/dL (0.1-1.4) Conjugated Bilirubin 0.4 mg/dL mg/dL (0.0-0.5) Unconjugated Bilirubin 0.2 mg/dL mg/dL (0.0-1.1) AST 46 IU/L IU/L (17-59) ALT 68 IU/L IU/L (21-72) Alkaline Phosphatase 102 IU/L IU/L (38-126) Total Protein 7.1 g/dL g/dL (6.3-8.2) Albumin 4.1 g/dL g/dL (3.5-5.0) Lipase 96 IU/L IU/L (23-300) Monoscreen NEGATIVE (NEGATIVE) Medications Given: Discontinued Medications Al Hydroxide/Mg Hydroxide (Maalox Susp) 30 ml PO ONCE ONE Stop: 07/08/17 12:50 Last Admin: 07/08/17 13:02 Dose: 30 ml Fentanyl (Sublimaze) 100 mcg IVP EDNOW ONE Stop: 07/08/17 12:51 Last Admin: 07/08/17 13:02 Dose: 100 mcg Hyoscyamine Sulfate (Levsin, Hyomax-Sl) 0.25 mg PO ONCE ONE Stop: 07/08/17 12:50 Last Admin: 07/08/17 13:02 Dose: 0.25 mg Sodium Chloride (Ns) 1,000 mls @ 0 mls/hr IV EDNOW ONE; Wide Open PRN Reason: Protocol Stop: 07/08/17 11:22 Last Admin: 07/08/17 11:45 Dose: 1,000 mls Sodium Chloride (Ns) 1,000 mls @ 0 mls/hr IV ONCE ONE PRN Reason: Wide Open Stop: 07/08/17 14:49 Last Admin: 07/08/17 15:06 Dose: 1,000 mls Ketorolac Tromethamine (Toradol) 15 mg IVP EDNOW ONE Stop: 07/08/17 12:31 Last Admin: 07/08/17 12:33 Dose: 15 mg Lidocaine (Lidocaine 2% Viscous) 15 ml PO ONCE ONE Stop: 07/08/17 12:50 Last Admin: 07/08/17 13:02 Dose: 15 ml Ondansetron HCl (Zofran) 4 mg IVP EDNOW ONE Stop: 07/08/17 11:22 Last Admin: 07/08/17 11:45 Dose: 4 mg Departure - Departure Disposition: Home, Routine, Self-Care Clinical Impression: Volume depletion, Nausea, Viral syndrome Condition: Good Instructions: Viral Syndrome (ED) Additional Instructions: Return to the emergency department immediately for change in breathing habits, change in voice, change in swallowing habits, change in mental status, or any other symptoms that concern you. Adult Pain & Fever Control: We recommend Acetaminophen (Tylenol) and Ibuprofen (Motrin,Advil) for pain and fever control. When fever is high or pain severe, both drugs can be used at the same time, but at different intervals. Please note the time differences. Your dose is: Acetaminophen 1000mg every 6 hours Ibuprofen 800mg every 6 hours with food OR Note: do not take Acetaminophen with Hydrocodone (Vicodin, Lortab) or Oycodone (Percocet). These medications also contain Acetaminophen. No more than 3000mg of Acetaminophen should be taken in 24 hours (for an adult). Referrals: [facility],. [Clinic] - As per Instructions Prescriptions: Ibuprofen [Motrin (*)] 800 mg PO Q6 #15 tab Ondansetron Odt [Zofran Odt] 4 mg PO Q4PRN PRN #10 tab PRN Reason: Nausea
[2017-07-08] MEDS ORDERED: KETOROLAC 15 MG/1 ML SDV IVP ONE (12:30)
[2017-07-08] MEDS ORDERED: HYOSCYAMINE SULFATE 0.125 MG TAB PO ONE (12:49)
[2017-07-08] MEDS ORDERED: MAG HYDROX/AL HYDROX/SIMETH 30 ML UDCUP PO ONE (12:49)
[2017-07-08] MEDS ORDERED: LIDOCAINE 2% VISCOUS 15 ML UDCUP PO ONE (12:49)
[2017-07-08] MEDS ORDERED: fentaNYL 100 MCG/2 ML INJ IVP ONE (12:50)
[2017-07-08 14:13] VITALS: PULSE 88; RESP 16
[2017-07-08 14:15] VITALS: BP 98/57; TEMP 99.1; O2SAT 92
[2017-07-08] MEDS ORDERED: ACETAMINOPHEN 500 MG TAB ONE (16:00)
[2017-07-08] MEDS ORDERED: ACETAMINOPHEN 500 MG TAB PO ONE (16:02)
== END 2017-07-08 16:31 | disposition home or self-care (01) ==
DX: B34.9 Viral infection, unspecified (principal); E86.9 Volume depletion, unspecified; F17.200 Nicotine dependence, unspecified, uncomplicated
CPT/HCPCS: 96374; J1885; J2405; J3010

== ENCOUNTER → 2017-07-24 | Emergency (ER) | payer MEDICAID ==
[2017-07-24 16:26] VITALS: BP 104/76; PULSE 97; RESP 16; TEMP 98.6; O2SAT 93
== END | disposition left against medical advice (07) ==
DX: Z53.21 Procedure and treatment not carried out due to patient leaving prior to being seen by health care provider (principal)

== ENCOUNTER 2017-07-25 16:33 | Emergency (ER) | payer MEDICAID ==
[2017-07-25 16:38] VITALS: BP 119/66; PULSE 97; RESP 18; TEMP 98.2; O2SAT 92
--- NOTE | 2017-07-25 17:02 | EDPHY ---
H & P Time Seen by Provider: 07/25/17 16:42 HPI/ROS: CHIEF COMPLAINT: Sore throat, possible conjunctivitis HISTORY OF PRESENT ILLNESS: 26-year-old immunocompetent male complaining of 1 week of sore throat with multiple children at home staff sting positive for strep pharyngitis. He is also complaining of 24 hr of left eye discharge, erythema. No exposure to high speed projectiles. No pain with extraocular movements. No chest pain. No back pain. No dyspnea. No nuchal rigidity. PRIMARY CARE PROVIDER: REVIEW OF SYSTEMS: A ten point review of systems was performed and is negative with the exception of the items mentioned in the HPI PAST MEDICAL & SURGICAL HISTORY: No pertinent medical or surgical history SOCIAL HISTORY: Multiple children home sick with strep pharyngitis. PHYSICAL EXAM (Prior to examination, patient consented to physical exam, hands were washed and my usual and customary physical exam procedures followed) 1) GENERAL: Well-developed, well-nourished, alert and oriented. Appears nontoxic. 2) HEAD: Normocephalic, atraumatic 3) HEENT: Pupils equal, round, reactive to light bilaterally. Left eye: Injected, discharge present. No periorbital erythema or induration. No proptosis. No pain with extraocular movements. No periorbital crepitus. Oropharynx: Bilaterally enlarged, symmetrical, exudate of tonsils. No pointing of the uvula. Ears bilaterally with normal tympanic membranes. 4) NECK: Full range of motion, no meningeal signs. 5) LUNGS: Clear auscultation bilaterally, no wheezes, no rhonchi, no retractions. 6) HEART: Regular rate and rhythm, no murmur, no heave, no gallop. 7) ABDOMEN: No guarding, no rebound, no focal tenderness, 8) MUSCULOSKELETAL: Moving all extremities, no focal areas of tenderness, no obvious trauma. No peripheral edema or discoloration. 9) BACK: No obvious trauma, no visual or palpable abnormality. 10) SKIN: No rash, no petechiae. 11) Psychiatric: Patient is oriented X 3, there is no agitation. DIFFERENTIAL DIAGNOSIS: In no particular include but limited to strep pharyngitis , peritonsillar abscess, conjunctivitis, periorbital cellulitis, orbital cellulitis Smoking Status: Former smoker Constitutional: Initial Vital Signs Temperature (C) 36.8 C 07/25/17 16:36 Heart Rate 97 07/25/17 16:36 Respiratory Rate 18 07/25/17 16:36 Blood Pressure 119/66 07/25/17 16:36 O2 Sat (%) 92 07/25/17 16:36 O2 Delivery Mode Room Air Allergies/Adverse Reactions: Penicillins Allergy (Verified 07/24/17 16:22) Home Medications: Medication Instructions Recorded Adderall 10 MG (*) 07/24/17 Azithromycin 500 mg PO DAILY #5 tablet 07/25/17 Ofloxacin 0.3% [Ocuflox 0.3%] 2 drops EACHEYE QID #1 opht.btl 07/25/17 MDM/Departure - [facility] ED Course/Re-evaluation: Regarding the patient's pharyngitis symptoms, high clinical suspicion for strep pharyngitis based on his signs and symptoms as well as positive exposure at home to multiple individuals with strep pharyngitis. His penicillin allergic. Will initiate therapy with azithromycin 5 mg once daily for 5 days. With regard to his left eye, doubt becky orbital or orbital cellulitis. Will initiate therapy with Ocuflox. Usual and customary discharge precautions instructions provided. Care of patient under supervision of secondary supervising physician Dr Carbajal. - Depart Disposition: Home, Routine, Self-Care Clinical Impression: Acute streptococcal pharyngitis Conjunctivitis, left eye Qualifiers: Conjunctivitis type: acute Acute conjunctivitis type: bacterial Qualified Code( s): H10.32 - Unspecified acute conjunctivitis, left eye Condition: Good Instructions: Conjunctivitis (ED), Strep Throat (ED) Additional Instructions: Return to the ER immediately if you cannot swallow, have drooling, fevers, neck stiffness, cannot open your jaw, or any other symptoms that concern you. Prescriptions: Azithromycin 500 mg PO DAILY #5 tablet Ofloxacin 0.3% [Ocuflox 0.3%] 2 drops EACHEYE QID #1 opht.btl Referrals: [facility],. [Clinic] - 1-2 days without fail
--- NOTE | 2017-07-25 17:46 | ASMTCMCOM ---
CM Note CM Note Notes: Pt presented to the ED for 5th time in last 3 months. Spoke with pt about outpt PCP care; pt has been referred to [facility] in the past. Pt states he has never established care at but is aware of the [facility]. Pt states his girlfriend has a "bunch of kids" and he keeps getting sick from them. We discussed importance of him establishing a PCP and pt states he will set up an appt at at [facility]. This CM offered to call PC and schedule an appt and follow up with patient but pt declined. CM available for further assistance if needed. Date Signed: 07/25/2017 05:46 PM Electronically Signed By:Carol Villalobos RN
--- NOTE | 2017-07-25 17:50 | ASDISCHSUM ---
Discharge Information Plan Status:Home with No Needs Medically Cleared to Leave: Discharge Date:07/25/2017 05:23 PM CM D/C Disposition:Home, Routine, Self-Care ADT D/C Disposition:Home, Routine, Self-Care Projected Discharge Date:07/25/2017 05:23 PM Transportation at D/C:None or Unknown Discharge Delay Reason: Follow-Up Date:07/25/2017 05:23 PM Discharge Slot: Final Diagnosis: Placement Information Patient Contact Information Contact Name:LUIS Relationship:Other Address:[address] [place]:[facility] Phone: [facility]/Zip Code:[place] [address] Email: Financial Information Financial Class:Medicaid Primary Plan Desc:MEDICAID HEALTH FIRST [employer]NOCK OUT HAND Primary Plan Number:[id number] Secondary Plan Desc: Secondary Plan Number: Assessment Information [facility] CM Progress Note CM Note CM Note Notes: Pt presented to the ED for 5th time in last 3 months. Spoke with pt about outpt PCP care; pt has been referred to [facility] in the past. Pt states he has never established care at but is aware of the [facility]. Pt states his girlfriend has a "bunch of kids" and he keeps getting sick from them. We discussed importance of him establishing a PCP and pt states he will set up an appt at at [facility]. This CM offered to call PC and schedule an appt and follow up with patient but pt declined. CM available for further assistance if needed. Date Signed: 07/25/2017 05:46 PM Electronically Signed By:Carol Villalobos RN LACE LACE Acuity / Level of Answers: No Care: Did the patient have an inpatient admission? # of Emergency department Answers: 5-8 visits in the last 6 months Score: 4 Date Signed: 07/25/2017 05:49 PM Electronically Signed By:Carol Villalobos RN Intervention Information
== END 2017-07-25 17:23 | disposition home or self-care (01) ==
DX: J02.0 Streptococcal pharyngitis (principal); H10.32 Unspecified acute conjunctivitis, left eye; Z87.891 Personal history of nicotine dependence

== ENCOUNTER 2017-10-18 15:03 | Emergency (ER) | payer MEDICAID ==
[2017-10-18] MEDS ORDERED: oxyCODONE IR 5 MG TAB PO ONE (15:42)
[2017-10-18] MEDS ORDERED: DIAZEPAM 2 MG TAB PO ONE (15:42)
--- NOTE | 2017-10-18 15:45 | EDPHY ---
H & P Time Seen by Provider: 10/18/17 15:31 HPI/ROS: CHIEF COMPLAINT: Back injury HISTORY OF PRESENT ILLNESS: The patient is a 27-year-old male who presents emergency department after falling on the ladder. The patient was 5 6 rungs up on a ladder when he fell back. He struck his back on a table saw that was not an operation. He has low back pain. Worse with movement. No weakness or numbness. No incontinence of urine or stool. No loss of consciousness. No previous back injury. REVIEW OF SYSTEMS: My complete review of systems is negative except as mentioned in the HPI. Past Medical/Surgical History: Previous back pain Smoking Status: Former smoker Physical Exam: Vitals noted GENERAL: Well-appearing, in no acute distress, alert. HEAD: No evidence of trauma. EYES: PERRLA, EOMI, normal to inspection. ENT: Airway intact, no dental or oral injury, no malocclusion, no hemotympanum , normal external examination. NECK: The trachea is midline. There is no crepitus. The C-spine is nontender. NEXUS criteria is negative (no midline tenderness, no distracting injury, no altered mental status, no recent alcohol use, no focal neurologic deficit). RESPIRATORY: Clear to auscultation bilaterally, no rales, rhonchi or wheezing. There is no crepitus or palpable rib fractures. CVS: Regular rate and rhythm, no rubs, murmurs, or gallops. ABDOMEN: Soft, nontender, nondistended, normal bowel sounds, no bruising or abrasions. Pelvis: Stable. No tenderness palpation. Hips full range of motion. BACK: Patient has a small abrasion over his lower mid lumbar spine. Moderate lumbar spine tenderness to palpation. No spinal step off SKIN: Normal color, warm, dry. No pallor or diaphoresis. EXTREMITIES: Right upper extremity: Atraumatic. No visible signs of trauma. No tenderness palpation. Neurovascular intact distally. Left upper extremity: Atraumatic. No visible signs of trauma. No tenderness palpation. Neurovascular intact distally. Right lower extremity: Atraumatic. No visible signs of trauma. No tenderness palpation. Neurovascular intact distally. Left lower extremity: Atraumatic. No visible signs of trauma. No tenderness palpation. Neurovascular intact distally. NEURO/PSYCH: Alert and oriented x 3, GCS 15, normal mood and affect, normal motor sensory exam. Constitutional: Initial Vital Signs Temperature (C) 36.4 C 10/18/17 15:10 Heart Rate 95 10/18/17 15:10 Respiratory Rate 18 10/18/17 15:10 Blood Pressure 117/79 10/18/17 15:10 O2 Sat (%) 95 10/18/17 15:10 O2 Delivery Mode Room Air Allergies/Adverse Reactions: Penicillins Allergy (Verified 07/24/17 16:22) Home Medications: Medication Instructions Recorded Adderall 10 MG (*) 07/24/17 Medical Decision Making ED Course/Re-evaluation: In the emergency department I discussed possible etiologies with the patient. I answered all his questions. Patient was given Oxy IR 10 mg orally and Valium 2 mg orally. The patient has been taking both ibuprofen and Tylenol every hour while at home. I instructed the patient on proper medication use. An x-ray of his lumbar spine was ordered. Differential Diagnosis: My differential includes but is not limited to fracture, contusion, sprain, strain, cord injury Departure - Departure Disposition: Home, Routine, Self-Care Clinical Impression: Lumbar back pain Condition: Good Referrals: NONE *PRIMARY CARE P,. [Primary Care Provider] - As per Instructions
[2017-10-18 17:10] VITALS: BP 120/95
--- NOTE | 2017-10-19 22:31 | ASDISCHSUM ---
Discharge Information Plan Status:Home with No Needs Medically Cleared to Leave: Discharge Date:10/18/2017 05:10 PM CM D/C Disposition:Home, Routine, Self-Care ADT D/C Disposition:Home, Routine, Self-Care Projected Discharge Date:10/18/2017 05:10 PM Transportation at D/C:None or Unknown Discharge Delay Reason: Follow-Up Date:10/18/2017 05:10 PM Discharge Slot: Final Diagnosis: Placement Information Patient Contact Information Contact Name:LUIS Relationship:Other Address:[address] [place]:[facility] Phone: [facility]/Zip Code:[place] [address] Email: Financial Information Financial Class:Medicaid Primary Plan Desc:[employer] Primary Plan Number:[id number] Secondary Plan Desc: Secondary Plan Number: Assessment Information [facility] CM Progress Note CM Note CM Note Notes: Followed up with [facility] re:whether or not patient has established care with them yet; left a voicemail. CM to follow up as needed. Date Signed: 10/19/2017 04:53 PM Electronically Signed By:Carol Villalobos RN Intervention Information
--- NOTE | 2017-10-21 11:24 | ASMTCMCOM ---
CM Note CM Note Notes: CM received call back from Galen at [facility]. patient has not been seen at the clinic since November 17, 2016. I confirmed contact information for patient with Galen. She will attempt to reach out to patient regarding resuming care and PCP Date Signed: 10/21/2017 11:24 AM Electronically Signed By:Gaby Pillai RN
== END 2017-10-18 17:10 | disposition home or self-care (01) ==
DX: S39.92XA Unspecified injury of lower back, initial encounter (principal); Z87.891 Personal history of nicotine dependence; W11.XXXA Fall on and from ladder, initial encounter; Y99.8 Other external cause status

== ENCOUNTER 2018-02-14 16:37 | Emergency (ER) | payer MEDICAID ==
[2018-02-14 16:42] VITALS: BP 123/72
--- NOTE | 2018-02-14 16:59 | EDPHY ---
H & P Stated Complaint: URI sxs x 4 days w/cough, congestion, sore throat;kids have same sxs Time Seen by Provider: 02/14/18 16:43 HPI/ROS: CHIEF COMPLAINT: Sore throat, cough HISTORY OF PRESENT ILLNESS: 27-year-old male presents with sore throat and cough. Onset of sore throat 3 days ago. The sore throat is moderate and persistent. Associated with nasal congestion and a moist cough. No fever and no shortness of breath. Concerned that he has strep throat. REVIEW OF SYSTEMS: complete 10 point ROS reviewed and is negative except for the noted elements in the HPI - Personal History Current Tetanus Diphtheria and Acellular Pertussis (TDAP): Yes - Medical/Surgical History Hx Asthma: No Hx Chronic Respiratory Disease: No Hx Diabetes: No Hx Cardiac Disease: No Hx Renal Disease: No Hx Cirrhosis: No Hx Alcoholism: No Hx HIV/AIDS: No Hx Splenectomy or Spleen Trauma: No Other PMH: adhd - Social History Smoking Status: Never smoked - Physical Exam Exam: General Appearance: Alert, pleasant Eyes: Pupils equal and round, no conjunctival injection ENT, Mouth: Mucous membranes moist, mild pharyngeal erythema, no exudate Neck: Normal inspection Respiratory: Lungs are clear to auscultation, no wheezing Cardiovascular: Regular rate and rhythm Neurological: A&O, nonfocal, normal gait Skin: Warm and dry Extremities: Normal inspection Psychiatric: Mood and affect normal Constitutional: Initial Vital Signs Temperature (C) 37.2 C 02/14/18 16:40 Heart Rate 102 H 02/14/18 16:40 Respiratory Rate 18 02/14/18 16:40 Blood Pressure 123/72 H 02/14/18 16:40 O2 Sat (%) 97 02/14/18 16:40 O2 Delivery Mode Room Air Allergies/Adverse Reactions: Penicillins Allergy (Intermediate, Verified 02/14/18 16:39) swells up Home Medications: Medication Instructions Recorded Adderall 10 MG (*) 07/24/17 Medical Decision Making ED Course/Re-evaluation: Decadron 6 mg orally given. - Data Points Laboratory Results: 02/14/18 02/14/18 Unknown 16:59 Group A Strep Screen NEGATIVE (NEGATIVE) Group A Strep DNA Pending Medications Given: Discontinued Medications Dexamethasone (Decadron) 6 mg PO EDNOW ONE Stop: 10/08/18 17:01 Last Admin: 02/14/18 17:14 Dose: 6 mg Departure - Departure Disposition: Home, Routine, Self-Care Clinical Impression: Upper respiratory infection Qualifiers: URI type: unspecified viral URI Qualified Code(s): J06.9 - Acute upper respiratory infection, unspecified Condition: Good Instructions: Upper Respiratory Infection (ED) Additional Instructions: Ibuprofen 600 mg 3 times daily for sore throat. Take Robitussin for as needed for cough. Referrals: Rick Awad MD [Medical Doctor] - As per Instructions
[2018-02-14] MEDS ORDERED: DEXAMETHASONE 4 MG TAB PO ONE (17:00)
== END 2018-02-14 17:32 | disposition home or self-care (01) ==
DX: J06.9 Acute upper respiratory infection, unspecified (principal)